=== PATIENT | male | born 1940 | race Caucasian/White ===

== ENCOUNTER → 2016-07-28 | Outpatient (CLI) | payer MEDICARE, BC | END | disposition home or self-care (01) | LOC: HKI 13:35 | PROVIDERS: ATTEND Orthopaedic Surgery | DX: Z47.89 Encounter for other orthopedic aftercare (principal); S72.142D Displaced intertrochanteric fracture of left femur, subsequent encounter for closed fracture with routine healing | CPT/HCPCS: G0463 ==

== ENCOUNTER → 2016-09-08 | Outpatient (CLI) | payer MEDICARE, BC ==
--- NOTE | 2016-09-08 14:35 | RADRPT ---
PROCEDURE: XR pelvis/left hip. CLINICAL INDICATION: Hip pain TECHNIQUE: AP pelvis/AP and lateral views of the left hip performed COMPARISON: No prior studies are available for comparison. FINDINGS: There is a left cephalomedullary nail and intramedullary rommel There is mild to moderate bilateral hip osteoarthrosis. This is associated with joint space narrowin g, subchondral sclerosis and osteophytosis. There is normal mineralization. No fractures or osseou s lesions are identified. The soft tissues are unremarkable. IMPRESSION: Mild to moderate bilateral hip osteoarthrosis. Left cephalomedullary nail and intramedullary rommel RPTAT: HG[facility] .Mc Miller MD, MD Date Time Electronically viewed and signed by .Mc Miller MD, on 09/08/2016 14:34 .B/
--- NOTE | 2016-09-08 14:36 | RADRPT ---
PROCEDURE: XR left femur. CLINICAL INDICATION: Pain TECHNIQUE: AP and lateral views of the lower femur performed. COMPARISON: No prior studies are available for comparison. FINDINGS: There is a locking intramedullary rommel. There is normal mineralization, architecture and alignment. No fracture or osseous lesion is identif ied. The joints are unremarkable. The soft tissues are unremarkable. IMPRESSION: Locking intramedullary rommel Otherwise unremarkable examination RPTAT: HGDB .Mc Miller MD, MD Date Time Electronically viewed and signed by .Mc Miller MD, on 09/08/2016 14:36 .B/
== END | disposition home or self-care (01) ==
LOC: HKI 09:49
PROVIDERS: ATTEND Orthopaedic Surgery
DX: Z47.89 Encounter for other orthopedic aftercare (principal); S72.142D Displaced intertrochanteric fracture of left femur, subsequent encounter for closed fracture with routine healing
CPT/HCPCS: 73502; 73552; G0463

== ENCOUNTER → 2016-11-13 | Outpatient (CLI) | payer MEDICARE, BC ==
--- NOTE | 2016-11-13 12:32 | RADRPT ---
PROCEDURE: XR left hip. CLINICAL INDICATION: Hip pain TECHNIQUE: 2 views performed COMPARISON: 09/08/2016 FINDINGS: Left hip fixation with intramedullary rommel and a dynamic compression pin. There is mild to moderate left hip osteoarthrosis. This is associated with joint space narrowing, cline bchondral sclerosis and osteophytosis. There is normal mineralization. No fractures or osseous les ions are identified. The soft tissues are unremarkable. IMPRESSION: ORIF of left hip with an intramedullary rommel and a dynamic compression pin Mild to moderate left hip osteoarthrosis. RPTAT: HGDB .Mc Miller MD, Date Time Electronically viewed and signed by .Mc Miller MD, on 11/13/2016 12:31 .B/
--- NOTE | 2016-11-13 12:33 | RADRPT ---
PROCEDURE: XR left knee. CLINICAL INDICATION: Knee pain TECHNIQUE: AP weightbearing, PA weightbearing, lateral weightbearing and sunrise views are availab le for review. COMPARISON: None available FINDINGS: Left intramedullary locking rommel. The osseous structures are normal in mineralization, architecture and alignment. No fractures are i dentified. No osseous lesions are identified. The joints are unremarkable. The soft tissues are u nremarkable. IMPRESSION: Unremarkable examination RPTAT: HGDB .Mc Miller MD, Date Time Electronically viewed and signed by .Mc Miller MD, on 11/13/2016 12:32 .B/
== END | disposition home or self-care (01) ==
LOC: HKI 10:14
PROVIDERS: ATTEND Orthopaedic Surgery
DX: S72.142D Displaced intertrochanteric fracture of left femur, subsequent encounter for closed fracture with routine healing (principal); X58.XXXD Exposure to other specified factors, subsequent encounter; M22.42 Chondromalacia patellae, left knee; M25.562 Pain in left knee
CPT/HCPCS: 73502

== ENCOUNTER → 2017-01-29 | Outpatient (CLI) | payer MEDICARE, BC ==
--- NOTE | 2017-01-29 16:28 | RADRPT ---
PROCEDURE: XR Left hip and pelvis. CLINICAL INDICATION: Left hip pain and pelvic pain. TECHNIQUE: 3 views. Frontal pelvis. Frontal and lateral left hip. COMPARISON: 09/08/2016. FINDINGS: There has been open reduction and internal fixation of the left hip with a rommel in the shaft of the f emur and a screw in the neck of the femur. Alignment is satisfactory. The soft tissues are normal. There are moderate degenerative changes of both hips with osteophytes and joint space narrowing. There is no lytic or blastic lesion. Surgical clips are present in the right side of the pelvis. IMPRESSION: 1. Satisfactory postoperative appearance of the left hip. 2. Moderate degenerative changes of both hips. RPTAT: QQ .Andres Carranza MD, MD Date Time Electronically viewed and signed by .Andres Carranza MD, on 01/29/2017 16:28 .R/
--- NOTE | 2017-01-29 16:30 | RADRPT ---
PROCEDURE: XR Femur. CLINICAL INDICATION: Left leg pain. Postop. TECHNIQUE: AP and lateral views of the left femur were performed. COMPARISON: 09/08/2016. FINDINGS: There is a locking intramedullary rommel. There is normal mineralization, architecture and alignment. No fracture or osseous lesion is identified. There are moderate degenerative changes of the left hip. The soft tissues are unremarkab le. IMPRESSION: 1. Satisfactory postoperative appearance of the left femur. RPTAT: QQ .Andres Carranza MD, Date Time Electronically viewed and signed by .Andres Carranza MD, on 01/29/2017 16:30 .R/
== END | disposition home or self-care (01) ==
LOC: HKI 09:54
PROVIDERS: ATTEND Orthopaedic Surgery
DX: Z47.89 Encounter for other orthopedic aftercare (principal); S72.142D Displaced intertrochanteric fracture of left femur, subsequent encounter for closed fracture with routine healing
CPT/HCPCS: 73502; 73552; G0463